=== PATIENT | female | born 1975 | race American Indian/Alaskan Native ===

== ENCOUNTER 2018-11-04 19:48 | Emergency (ER) | payer OTHER ==
[2018-11-04] MEDS ORDERED: ZOFRAN ODT PO ONE (21:13)
[2018-11-04] MEDS ORDERED: PROVENTIL IH ONE (21:13)
[2018-11-04] MEDS ORDERED: DECADRON IM ONE (21:13)
[2018-11-04] MEDS ORDERED: TYLENOL PO ONE (21:13)
--- NOTE | 2018-11-04 22:04 | Emergency Department Report ---
ED General Adult HPI - General Chief complaint: Nausea/Vomiting/Diarrhea Stated complaint: VOMITTING SOB Time Seen by Provider: 11/04/18 21:11 Source: patient Mode of arrival: Ambulatory Limitations: No Limitations - History of Present Illness Initial comments: Pt is a 43 y/o aaf with hx of asthma who presents for coughs wheezing x 2 weeks after known mole exposure in house, pt denies fever or chills does endorse post nasal drip causing n/v , there is associated bodyaches and sore throat no fever cough now producing green sputum for past 3 days. symptoms are exacerbated by environmental exposure symptoms are relieved by rest and albuterol inhaler. pt is currently tolerating po intake without n/v , n/v x 1 episode today, there is no cp today , Onset/Timin -: week(s) Location: head, chest Radiation: non-radiation Severity scale (0 -10): 7 Quality: aching, other (sob wheezing ) Consistency: intermittent Improves with: rest Worsens with: other (environmental exposure) Associated Symptoms: cough, headaches, nausea/vomiting, shortness of breath, other (wheezing ) Treatments Prior to Arrival: none - Related Data Previous Rx's Medication Instructions Recorded Last Taken Type ALBUTEROL Inhaler(NF) [VENTOLIN 2 puff IH Q4H PRN #1 inha 11/05/18 Unknown Rx Inhaler(NF)] Azithromycin [Zithromax Z-EYIMI] 250 mg PO DAILY #6 tab 11/05/18 Unknown Rx Benzonatate [Tessalon Perle] 100 mg PO TID PRN #30 capsule 11/05/18 Unknown Rx Dexamethasone [Decadron] 4 mg PO BID 3 Days #6 tablet 11/05/18 Unknown Rx Ibuprofen 800 mg PO TID PRN #30 tablet 11/05/18 Unknown Rx Allergies Allergy/AdvReac Type Severity Reaction Status Date / Time amoxicillin Allergy Unknown Verified 11/04/18 19:59 Penicillins Allergy Unknown Verified 11/04/18 19:59 Sulfa (Sulfonamide Allergy Unknown Verified 11/04/18 19:59 Antibiotics) ED Review of Systems ROS: Stated complaint: VOMITTING SOB Other details as noted in HPI Constitutional: malaise Eyes: denies: eye pain, eye discharge, vision change ENT: throat pain, congestion Respiratory: cough, shortness of breath, wheezing Cardiovascular: chest pain Endocrine: no symptoms reported Gastrointestinal: nausea, vomiting. denies: abdominal pain, diarrhea Genitourinary: denies: urgency, dysuria, discharge Musculoskeletal: denies: back pain, joint swelling, arthralgia Skin: denies: rash, lesions Neurological: headache. denies: weakness, paresthesias Psychiatric: denies: anxiety, depression Hematological/Lymphatic: denies: easy bleeding, easy bruising ED Past Medical Hx - Past Medical History Hx Heart Attack/AMI: Yes (2017) Hx Asthma: Yes Additional medical history: ELEVATED CHOLESTEROL - Surgical History Hx Cholecystectomy: Yes Additional Surgical History: HH REPAIR, TUBILIGATION - Social History Smoking Status: Current Some Day Smoker Substance Use Type: Alcohol, Marijuana - Medications Home Medications: Home Medications Medication Instructions Recorded Confirmed Last Taken Type ALBUTEROL Inhaler(NF) [VENTOLIN 2 puff IH Q4H PRN #1 inha 11/05/18 Unknown Rx Inhaler(NF)] Azithromycin [Zithromax Z-YEIMI] 250 mg PO DAILY #6 tab 11/05/18 Unknown Rx Benzonatate [Tessalon Perle] 100 mg PO TID PRN #30 capsule 11/05/18 Unknown Rx Dexamethasone [Decadron] 4 mg PO BID 3 Days #6 tablet 11/05/18 Unknown Rx Ibuprofen 800 mg PO TID PRN #30 tablet 11/05/18 Unknown Rx ED Physical Exam - General Limitations: No Limitations General appearance: alert, in no apparent distress - Head Head exam: Present: atraumatic, normocephalic - Eye Eye exam: Present: normal appearance, PERRL, EOMI Pupils: Present: normal accommodation - ENT ENT exam: Present: mucous membranes moist, TM's normal bilaterally, normal external ear exam - Expanded ENT Exam Expanded Ear exam: Present: normal external inspection Mouth exam: Absent: trismus Teeth exam: Present: normal inspection Throat exam: Positive: tonsillar erythema, tonsillomegaly, other (uvula midline no stridor no exudate no lesions ). Negative: tonsillar exudate, R peritonsillar mass, L peritonsillar mass - Neck Neck exam: Present: normal inspection, full ROM. Absent: tenderness, meningismus, lymphadenopathy, thyromegaly - Expanded Neck Exam Expanded Neck exam: Absent: tenderness, midline deformity, anterior neck swelling, thyroid mass, carotid bruit, tracheal deviation - Respiratory Respiratory exam: Present: normal lung sounds bilaterally, wheezes, chest wall tenderness (right anterior chest wall tenderness ). Absent: respiratory distress, rales, rhonchi, stridor - Cardiovascular Cardiovascular Exam: Present: regular rate, normal rhythm, normal heart sounds. Absent: systolic murmur, diastolic murmur, rubs, gallop - GI/Abdominal GI/Abdominal exam: Present: soft, normal bowel sounds. Absent: distended, rebound, bruit, hernia - Rectal Rectal exam: Present: deferred - External exam: Present: normal external exam - Extremities Exam Extremities exam: Present: normal inspection, full ROM, normal capillary refill. Absent: tenderness - Back Exam Back exam: Present: normal inspection - Neurological Exam Neurological exam: Present: alert, oriented X3, CN II-XII intact, normal gait - Psychiatric Psychiatric exam: Present: normal affect, normal mood - Skin Skin exam: Present: warm, dry, intact, normal color. Absent: rash ED Course Vital Signs 11/04/18 19:53 Temperature 99.2 F Pulse Rate 98 H Respiratory 20 Rate Blood Pressure 162/94 O2 Sat by Pulse 99 Oximetry ED Medical Decision Making - Lab Data Result diagrams: 11/04/18 21:31 Labs 11/04/18 11/04/18 21:31 21:31 WBC 9.7 RBC 4.64 Hgb 13.8 Hct 41.0 MCV 88 MCH 30 MCHC 34 RDW 14.5 Plt Count 341 Lymph % (Auto) 41.5 H Preston % (Auto) 9.5 H Eos % (Auto) 3.7 Baso % (Auto) 1.1 Lymph # 4.0 Preston # 0.9 H Eos # 0.4 Baso # 0.1 Seg Neutrophils % 44.2 Seg Neutrophils # 4.3 HCG, Qual Negative - EKG Data EKG shows normal: sinus rhythm - EKG Data When compared to previous EKG there are: previous EKG unavailable Interpretation: normal EKG (interp by ed attending ) - Radiology Data Radiology results: report reviewed, image reviewed normal cxr no opacities no infiltrates. - Medical Decision Making cxr normal symptom resolved, plan tx for bronchitis, albuterol , zpack, ibuprofen, decadron, tessalon, follow up with pcp rupa 2-3 days pt verbalized agreement and understanding of same. pt will dc to home in stable condition at this time. Critical care attestation.: If time is entered above; I have spent that time in minutes in the direct care of this critically ill patient, excluding procedure time. ED Disposition Clinical Impression: Bronchitis Upper respiratory infection Qualifiers: URI type: unspecified viral URI Qualified Code(s): J06.9 - Acute upper respiratory infection, unspecified Disposition: DC-01 TO HOME OR SELFCARE Is pt being admited?: No Does the pt Need Aspirin: No Condition: Stable Instructions: Upper Respiratory Infection (ED), Acute Bronchitis (ED) Prescriptions: ALBUTEROL Inhaler(NF) [VENTOLIN Inhaler(NF)] 2 puff IH Q4H PRN #1 inha PRN Reason: shortness of breath wheezing Azithromycin [Zithromax Z-YEIMI] 250 mg PO DAILY #6 tab Benzonatate [Tessalon Perle] 100 mg PO TID PRN #30 capsule PRN Reason: Cough Dexamethasone [Decadron] 4 mg PO BID 3 Days #6 tablet Ibuprofen 800 mg PO TID PRN #30 tablet PRN Reason: pain fever Referrals: PRIMARY CARE, [Primary Care Provider] - 3-5 Days Forms: Work/School Release Form(ED) Time of Disposition: 00:34
[2018-11-04 22:15] LABS: Basophils # (Auto) 0.1 K/mm3 (0.0-0.1); Basophils % (Auto) 1.1 % (0.0-1.8); Eosinophils # (Auto) 0.4 K/mm3 (0.0-0.4); Eosinophils % (Auto) 3.7 % (0.0-4.3); Hemoglobin 13.8 gm/dl (10.1-14.3); Lymphocytes % (Auto) 41.5 % (13.4-35.0); Mean Corpuscular HGB Conc 34 % (30-34); Mean Corpuscular Volume 88 fl (79-97); Monocytes # (Auto) 0.9 K/mm3 (0.0-0.8); Monocytes % (Auto) 9.5 % (0.0-7.3); Platelet Count 341 K/mm3 (140-440); Red Blood Count 4.64 M/mm3 (3.65-5.03); Red Cell Distribution Width 14.5 % (13.2-15.2)
--- NOTE | 2018-11-04 23:38 | XRay Report ---
FINAL REPORT PROCEDURE: XR CHEST ROUTINE 2V TECHNIQUE: PA and lateral chest radiographs were obtained. CPT 56909 HISTORY: shortness of breath wheezing COMPARISON: No prior studies are available for comparison. FINDINGS: Heart: Normal. Mediastinum/Vessels: Normal. Lungs/Pleural space: Normal. Bony thorax: No acute osseous abnormality. Other: IMPRESSION: Normal examination.
[2018-11-05] MEDS ORDERED: ULTRAM PO ONE (00:24)
[2018-11-05 00:37] VITALS: BP 152/80
== END 2018-11-05 00:55 | disposition home or self-care (01) ==
LOC: ED 19:48
DX: J40 Bronchitis, not specified as acute or chronic (principal)
CPT/HCPCS: 36415; 71046; 84703; 85025; 93005; 93010; 96372; 99284; J1100; Q0162